=== PATIENT | male | born 1950 | race Caucasian/White ===

== ENCOUNTER → 2025-03-16 | Outpatient (CLI) | payer OTHER, SELFPAY ==
--- NOTE | 2025-03-16 13:56 | ECHOD_ITS ---
Reason For Study Reason For Study: Aortic Regurgitation Procedure This was a 2D Doppler, Color Flow transthoracic echocardiogram. The study was technically difficult. Exam performed in department. Left Ventricle Normal LV size. The estimated ejection fraction is 63 %. No regional wall motion abnormalities noted. Right Ventricle Normal RV size. Normal systolic function. Atria Normal left atrium. Normal right atrium. Mitral Valve Normal mitral valve. Tricuspid Valve Normal tricuspid valve. Mild (1+) tricuspid valve insufficiency. Pulmonary artery systolic pressure is 24 mmHg. Aortic Valve Trisinus/trileaflet aortic valve. Mild focal aortic valve thickening. Mild (1+) aortic valve insufficiency. Pulmonic Valve Normal pulmonic valve. Great Vessels Mild to moderately dilated aortic root. The pulmonary artery is normal size. Inferior vena cava collapse with respiration. Pericardium/Pleural No pericardial effusion. MMode/2D Measurements & Calculations LVIDd: 5.5 cm IVSd: 0.66 cm LVOT diam: 2.0 cm LVIDs: 3.1 cm LVPWd: 0.73 cm LVOT area: 3.0 cm2 FS: 43.0 % Ao root diam: 4.1 cm asc Aorta Diam: 4.1 cm LAV(MOD-sp4): 28.1 ml LVAd ap4: 28.4 cm2 SV(MOD-sp4): 56.3 ml SV(sp4-el): 56.6 ml LVLd ap4: 7.5 cm SI(MOD-sp4): 30.7 ml/m2 EDV(MOD-sp4): 89.6 ml EDV(sp4-el): 90.6 ml LVAs ap4: 15.7 cm2 LVLs ap4: 6.2 cm ESV(MOD-sp4): 33.4 ml ESV(sp4-el): 33.9 ml EF(MOD-sp4): 62.8 % EF(sp4-el): 62.5 % LA dimension(2D): 3.5 cm LA A4 area: 11.3 cm2 RA A4 area: 9.5 cm2 Time Measurements MV dec time: 0.23 sec Doppler Measurements & Calculations MV E max james: 49.3 cm/sec Lat Peak E' James: 8.7 cm/sec Med Peak E' James: 5.8 cm/sec MV A max james: 57.5 cm/sec E/E' lat: 5.7 E/E' med: 8.5 MV E/A: 0.86 MV V2 max: 71.8 cm/sec MV P1/2t max james: 68.9 cm/sec Ao V2 max: 169.3 cm/sec MV max P.1 mmHg MV P1/2t: 81.9 msec Ao max P.5 mmHg MV V2 mean: 32.2 cm/sec MV dec slope: 246.4 cm/sec2 Ao V2 mean: 119.0 cm/sec MV mean P.53 mmHg Ao mean P.3 mmHg MV V2 VTI: 27.1 cm MVA(P1/2t): 2.7 cm2 Ao V2 VTI: 34.6 cm MVA(VTI): 3.2 cm2 AV (velocity ratio): 0.83 BETH(I,D): 2.5 cm2 BETH(V,D): 2.7 cm2 AI max james: 370.6 cm/sec LV V1 max: 150.2 cm/sec SV(LVOT): 86.0 ml AI max P.0 mmHg LV V1 max P.0 mmHg AI dec slope: 143.9 cm/sec2 LV V1 mean P.7 mmHg AI P1/2t: 754.2 msec LV V1 mean: 101.5 cm/sec LV V1 VTI: 28.8 cm TR max james: 224.6 cm/sec TR max P.2 mmHg ECHO/Echo Complete Interpretation Summary Normal LV size. The estimated ejection fraction is 63 %. Mild to moderately dilated aortic root. Mild (1+) aortic valve insufficiency. Ordering Physician: Tin Diaz Referring Physician: Tin Diaz Performed By: Alonzo Erickson RCS
== END | disposition home or self-care (01) ==
LOC: CVS 13:52
PROVIDERS: PCP Family Medicine; Referring Provider Chiropractor; Visit Provider Chiropractor
DX: I06.2 Rheumatic aortic stenosis with insufficiency (principal)
CPT/HCPCS: 93306